=== PATIENT | female | born 1990 | race Caucasian/White ===

== ENCOUNTER → 2018-03-26 17:41 | Outpatient (CLI) | payer SELFPAY ==
--- NOTE | 2018-03-26 15:20 | BRBX_PTH ---
PATIENT: HELEN FRANCIS LOC: [facility] U#:[id number] AGE/SX: 35/F ROOM: RE03/26/[address]: Dr. Tricia Verdugo MD : [id number] BED: DIS: SPEC #: [id number] RECD: 03/26/18 17:11 STATUS: CHICA MORGAN #: [id number] SUMMER: 03/26/18 15:[address]: Tricia Verdugo DEPT: SURGICAL PATHOLOGY RECD BY: Addison Demarco Tissues: Right breast, NOS Procedures: Surgery Specimen Level IV HEADER OPERATION: Ultrasound-guided needle core biopsy right breast PRE-OP DIAGNOSIS: Abnormal mammogram/ultrasound TISSUE SUBMITTED: Right breast needle core biopsy ISCHEMIC TIME: 5 minutes FIXATION TIME: 52 hours MICROSCOPIC DIAGNOSIS Right breast, ultrasound-guided needle core biopsy: Fragments of fibroadenoma. Focal intraductal hyperplasia without atypia. AM:darius 03/30/18 COMMENT Case has been reviewed in consultation with Dr. Milan who concurs with the above diagnosis. IDC:SJ MICROSCOPIC DESCRIPTION Slides are reviewed. GROSS DESCRIPTION Received in fixative is one container labeled with the patient's name and designated right breast biopsy. The specimen consists of multiple elongated fragments of moreno-yellow fibroadipose tissue that in aggregate measure 2 x 1.5 x 0.2 cm. The entire specimen is submitted in one cassette. / JILL:darius 03/27/18 TC:5 CPT: 18900
== END ==
PROVIDERS: Visit Provider Surgery
DX: R92.8 Other abnormal and inconclusive findings on diagnostic imaging of breast (principal)
CPT/HCPCS: 88305